=== PATIENT | female | born 1990 | race Caucasian/White ===

== ENCOUNTER 2018-05-18 14:10 | Inpatient (IN) | payer BC ==
[~2018-05-18] VITALS: Ht 170.2 cm; Wt 84.1 kg
[2018-05-18] VITALS (17 sets, daily range): BP systolic 120–157; BP diastolic 69–96; PULSE 58–101; TEMP 97.5–98.5
[2018-05-18] MEDS ORDERED: PRENATAL (14:30)
[2018-05-18] MEDS ORDERED: FOLIC ACID0.4 MG PO (14:31)
[2018-05-18] MEDS ORDERED: COLACE 100100 MG/CAP PO (14:31)
[2018-05-18 14:38] LABS: BASO % 0.3 % (0.0-2.0); EOS # 0.2 (0.0-0.7); EOS % 1.3 % (0-4.0); GRAN # 9.3 (1.4-6.5); GRAN % 76.3 % (42.2-75.2); HEMOGLOBIN 11.8 g/dl (12.5-16.0); LYMPH # 1.9 (1.2-3.4); LYMPH % 15.2 % (20.0-51.0); MEAN CELL VOLUME 89 fl (80.0-100.0); MEAN CORPUSCULAR HEMOGLOBIN 30 pg (27.0-31.0); MEAN CORPUSCULAR HGB CONC 34 g/dl (33.0-37.0); MEAN PLATELET VOLUME 10.6 fl (7.4-10.4); MONO # 0.8 (0.1-0.6); MONO % 6.5 % (1.7-9.3); PLATELET COUNT 271 K/mm3 (130-400); RED BLOOD COUNT 3.96 M/mm3 (4.10-5.30); REDCELL DISTRIBUTION WIDTH-CV 13.5 % (11.5-14.5)
[2018-05-18 14:44] LABS: HEMATOCRIT 35.1 % (37.0-47.0)
[2018-05-18] MEDS ORDERED: MOTRIN 800800 MG/TAB PO (14:57)
[2018-05-18] MEDS ORDERED: PERCOCET 325 MG1 TA2 PO (14:57)
[2018-05-19 05:45] VITALS: BP 118/73; PULSE 67; TEMP 97.7
[2018-05-19 07:43] LABS: HEMOGLOBIN 11.7 g/dl (12.5-16.0)
[2018-05-19 07:45] LABS: HEMATOCRIT 35.4 % (37.0-47.0)
[2018-05-19 08:54] VITALS: BP 131/69; PULSE 66
[2018-05-19 15:36] VITALS: BP 124/71; PULSE 61
== END 2018-05-19 15:25 | disposition home or self-care (01) | DRG 787 ==
LOC: OB 14:10 → LDR 14:10 → OB 19:02
PROVIDERS: Obstetrics & Gynecology
PROC: 10D00Z1 Extraction of Products of Conception, Low, Open Approach (ICD-10-PCS; principal; 2018-05-18)
DX: O36.5930 Maternal care for other known or suspected poor fetal growth, third trimester, not applicable or unspecified (principal); O41.03X0 Oligohydramnios, third trimester, not applicable or unspecified; Z3A.35 35 weeks gestation of pregnancy; Z37.0 Single live birth; O32.1XX0 Maternal care for breech presentation, not applicable or unspecified; P05.18 Newborn small for gestational age, 2000-2499 grams
CPT/HCPCS: J0690; J0702; J1885; J2175; J2370; J2405; J2590; J3010; J7120